=== PATIENT | female | born 1955 | race Caucasian/White ===

== ENCOUNTER → 2017-04-02 | Outpatient (CLI) | payer MEDICARE, MEDICAID ==
[~2017-04-02] MED LIST: ALBUTEROL0.09 MG/A2; ALBUTEROL0.09 MG/A2 IH; ANTIVERT12.5 MG PO; ATIVAN0.5 MG PO; BACTRIM DS 8001 TA1 PO; CELECOXIB200 M1 PO; CIPRO500 MG PO; CIPROFLOXACIN500 MG PO; CLARITIN10 MG PO; DIFLUCAN150 MG PO; ESTRACE0.5 MG PO; FLOVENT HFA10.6 GM IH; FLOVENT0.044 MG/A IH; IBUPROFEN200 M2 PO; IMITREX100 MG PO; K-TAB20 MEQ PO; LEVAQUIN750 MG PO; LOMOTIL 0.025 M1 TA1 PO; MEDROL2 MG PO; MEDROL4 MG PO; NORTRIPTYLINE10 MG PO; OMEGA 3 120 MG-1 CAP PO; PREDNICOT20 MG PO; PREDNISONE20 M1 PO; PREDNISONE5 MG PO; PROBIOTIC250 MG PO; REGLAN10 MG PO; SEPTRA DS 800 M1 TAB PO; VENTOLIN H0.09 MG/AC INH; ZOFRAN ODT4 MG SL; Zofran4 MG PO
== END | disposition home or self-care (01) ==
LOC: MAMMO 02:51
DX: Z12.31 Encounter for screening mammogram for malignant neoplasm of breast (principal)

== ENCOUNTER → 2018-06-08 | Outpatient (CLI) | payer MEDICARE, MEDICAID | END | disposition home or self-care (01) | LOC: MAMMO 01:54 | DX: Z12.31 Encounter for screening mammogram for malignant neoplasm of breast (principal) ==

== ENCOUNTER → 2018-10-30 | Emergency (ER) | payer OTHER ==
[~2018-10-30] VITALS: Ht 162.5 cm; Wt 52.6 kg
[~2018-10-30] MED LIST changes: +ZOFRAN4 MG PO
[2018-10-30 17:31] LABS: BASO # 0.1 10*3/uL (0.0-0.1); BASO % 0.6 % (0.0-1.0); EOS # 0.1 10*3/uL (0.0-0.4); HEMATOCRIT 45.9 % (37.0-47.0); HEMOGLOBIN 15.1 g/dl (12.0-16.0); LYMPH # 1.1 10*3/uL (1.3-4.4); LYMPH % 9.7 % (27.0-41.0); MEAN CORPUSCULAR HGB 29.3 pg (27.0-31.0); MEAN CORPUSCULAR HGB CONC 32.9 g/dl (33.0-37.0); MEAN PLATELET VOLUME 10.1 fl (9.6-12.3); MONO # 0.4 10*3/uL (0.1-1.0); MONO % 3.7 % (3.0-9.0); NEUT # 9.2 10*3/uL (2.3-7.9); NEUT % 84.6 % (47.0-73.0); PLATELET COUNT AUTOMATED 243 10*3/uL (130-400); RED BLOOD COUNT 5.16 10*6/uL (4.10-5.10); RED CELL DISTRI WIDTH 12.4 % (0-14.5); WHITE BLOOD COUNT 10.9 10*3/uL (4.8-10.8)
[2018-10-30 17:31] LABS: BILIRUBIN NEGATIVE (NEGATIVE); BLOOD TRACE-INTACT (NEGATIVE); CLARITY CLEAR (CLEAR); COLOR YELLOW (YELLOW); GLUCOSE NEGATIVE (NEGATIVE); KETONE TRACE (NEGATIVE); LEUKO ESTERASE NEGATIVE (NEGATIVE); NITRITE NEGATIVE (NEGATIVE); SPECIFIC GRAVITY 1.015 (1.005-1.030); UROBILINOGEN 0.2 E.U./dl (0.2-1.0)
[2018-10-30 17:41] LABS: BACTERIA 1+; EPITHELIAL CELLS 20-25
[2018-10-30 17:42] LABS: WBC 0-2 wbc/hpf (0-5)
[2018-10-30 17:52] LABS: ALBUMIN 3.5 gm/dl (3.1-4.5); ALKALINE PHOSPHATASE 92 U/L (45-117); BUN 17 mg/dl (7-24); CHLORIDE 105 mmol/L (98-107); CREATININE 0.76 mg/dL (0.55-1.02); LIPASE 123 U/L (73-393); POTASSIUM 4.4 mmol/L (3.5-5.1); SGOT/AST 13 IU/L (3-35); SGPT/ALT 15 U/L (12-78); SODIUM 140 mmol/L (136-145)
== END ==
LOC: ED 16:07
PROVIDERS: Physician Assistant
DX: K56.7 Ileus, unspecified (principal); Z88.0 Allergy status to penicillin; Z88.6 Allergy status to analgesic agent; Z88.8 Allergy status to other drugs, medicaments and biological substances; Z88.1 Allergy status to other antibiotic agents; Z91.011 Allergy to milk products; Z79.2 Long term (current) use of antibiotics; Z79.899 Other long term (current) drug therapy; Z90.710 Acquired absence of both cervix and uterus

== ENCOUNTER 2018-12-14 12:34 | Emergency (ER) | payer OTHER ==
[~2018-12-14] VITALS: Ht 162.5 cm; Wt 54.4 kg
--- NOTE | ~2018-12-14 | EKG ---
[place], [place] ELECTROCARDIOGRAM REPORT NAME: CAPRI GRAJEDA UNIT #: [id number] ROOM: DOCTOR: EPIPHANY DRAFT REPORT BIRTHDATE: [birth year] [facility] Test Date: 2018-12-14 Test Time: 13:28:36 Pat Name: CAPRI GRAJEDA Department: ER Room: 17 Gender: F Sprinkler Inspector: Kristy Gómez : 1955 Requested By: CARMITA SINGLETARY Order Number: [id number] Reading MD: Kyle Tran MD Measurements Intervals [place] Rate: 77 P: 60 RI: 123 QRS: 48 QRSD: 89 T: 100 QT: 376 QTc: 426 Interpretive Statements Sinus rhythm Borderline repolarization abnormality Electronically Signed On 12-15-2018 11:25:00 PST by Kyle Tran MD CM:EKGRPT:ELECTROCARDIOGRAM REPORT [id number] CARMITA NUNEZ DRAFT REPORT CARMITA SINGLETARY MD
[2018-12-14 13:32] LABS: BASO # 0.1 10*3/uL (0.0-0.1); BASO % 0.6 % (0.0-1.0); EOS # 0.1 10*3/uL (0.0-0.4); EOS % 1.1 % (1.0-4.0); HEMATOCRIT 46.4 % (37.0-47.0); HEMOGLOBIN 15.3 g/dl (12.0-16.0); LYMPH # 1.6 10*3/uL (1.3-4.4); LYMPH % 12.5 % (27.0-41.0); MEAN CELL VOLUME 89.9 fl (81.0-99.0); MEAN CORPUSCULAR HGB 29.7 pg (27.0-31.0); MEAN PLATELET VOLUME 10.2 fl (9.6-12.3); MONO # 0.6 10*3/uL (0.1-1.0); MONO % 4.6 % (3.0-9.0); NEUT # 10.1 10*3/uL (2.3-7.9); NEUT % 80.8 % (47.0-73.0); PLATELET COUNT AUTOMATED 268 10*3/uL (130-400); RED BLOOD COUNT 5.16 10*6/uL (4.10-5.10); RED CELL DISTRI WIDTH 12.5 % (0-14.5); WHITE BLOOD COUNT 12.4 10*3/uL (4.8-10.8)
[2018-12-14 13:33] LABS: BILIRUBIN NEGATIVE (NEGATIVE); BLOOD TRACE-INTACT (NEGATIVE); CLARITY CLEAR (CLEAR); COLOR YELLOW (YELLOW); GLUCOSE NEGATIVE (NEGATIVE); KETONE NEGATIVE (NEGATIVE); LEUKO ESTERASE NEGATIVE (NEGATIVE); NITRITE NEGATIVE (NEGATIVE); PH 5.5 (5.0-9.0); SPECIFIC GRAVITY <= 1.005 (1.005-1.030); UROBILINOGEN 0.2 E.U./dl (0.2-1.0)
[2018-12-14 13:41] LABS: ACT PARTIAL THROMBO TIME 22.7 SECONDS (20.8-31.5); INTERNATIONAL NORM RATIO 0.9 (2.0-3.5)
[2018-12-14 13:42] LABS: BACTERIA 1+
[2018-12-14 13:48] LABS: ALBUMIN 3.7 gm/dl (3.1-4.5); ALKALINE PHOSPHATASE 86 U/L (45-117); BUN 19 mg/dl (7-24); CHLORIDE 105 mmol/L (98-107); CREATININE 0.92 mg/dL (0.55-1.02); POTASSIUM 4.4 mmol/L (3.5-5.1); SGOT/AST 16 IU/L (3-35); SGPT/ALT 16 U/L (12-78); SODIUM 139 mmol/L (136-145); TOTAL PROTEIN 7.1 gm/dL (6.4-8.2)
[2018-12-14 13:51] LABS: TROPONIN I < 0.015 ng/ml (<0.045)
[2018-12-14] MEDS ORDERED: NORVASC5 MG PO (16:22)
[2018-12-27] MEDS ORDERED: NORVASC5 MG PO (08:12)
[2018-12-27] MEDS ORDERED: DEPO MEDRO40 MG/1 ML IM (08:13)
[2018-12-27] MEDS ORDERED: VIT D IJ (08:13)
== END 2018-12-14 16:26 | disposition home or self-care (01) ==
LOC: ED 12:34
PROVIDERS: Emergency Medicine
DX: R42 Dizziness and giddiness (principal); R51 Headache; I10 Essential (primary) hypertension; Z98.890 Other specified postprocedural states; Z90.710 Acquired absence of both cervix and uterus; J44.9 Chronic obstructive pulmonary disease, unspecified; Z79.899 Other long term (current) drug therapy; Z88.0 Allergy status to penicillin; Z88.6 Allergy status to analgesic agent; Z88.3 Allergy status to other anti-infective agents; Z88.1 Allergy status to other antibiotic agents; Z91.011 Allergy to milk products

== ENCOUNTER → 2018-12-27 | Outpatient (CLI) | payer OTHER ==
[~2018-12-27] MED LIST changes: +DEPO MEDRO40 MG/1 ML IM; +NORVASC5 MG PO; +VIT D IJ; +ZYRTEC10 MG PO
--- NOTE | ~2018-12-27 | ST ---
[place], [place] EXERCISE STRESS TEST REPORT NAME: CAPRI GRAJEDA [facility] #: [id number] UNIT #: [id number] ROOM: DOCTOR: JEB MCKOY MD BIRTHDATE: [birth year] DOS: 12/27/2018 PHARMACOLOGICAL STRESS TEST REASON FOR TESTING: Atypical chest pain. Baseline EKG showed normal sinus rhythm with ST changes suggestive of inferior wall ischemia. PROCEDURE: Informed consent was obtained after explaining the risks and benefits of the test. The patient received a rapid infusion of regadenoson 0.4 mg IV followed by saline flush. The patient experienced nausea and dizziness. There were no new EKG changes were noted. The patient tolerated the procedure well. There was an appropriate heart rate response to the infusion. Isotope was injected 40 seconds later. IMPRESSION: Well tolerated pharmacological stress test. Please see separate imaging report for further details of the stress test results. Jeb Mckoy MD CM:STRESS:EXERCISE STRESS TEST REPORT [id number] 1020 JEB MCKOY MD
--- NOTE | 2018-12-27 09:45 | NUR ---
INFORMED CONSENT OBTAINED FOR LEXISCAN NUCLEAR STRESS TEST WITH DR. MCKOY. RESTING EKG NSR WITH A RESTING HR OF 99 WITH BP OF 144/68. HAS ST DOWNSLOPING IN LEADS II,III AND AVF. LUNGS CLEAR WITH SPO2 OF 97% ON ROOM AIR. PT COMPLETED A 1:00 LEXISCAN PROTOCOL RECEIVING LEXISCAN 0.4 MG IV OVER 10 SECONDS. HAD NO CHEST PAIN. DID DEVELOP ST DEPRESSION IN LEADS II,III,AVF AND V5-V6. HAD C/O NAUSEA THAT SUBSIDED IN RECOVERY. HAD A PEAK HR OF 127 WITH BP OF 168/70. LAST RECOVERY HR OF 105 WITH BP OF 156/50. AWAITING SCANNING IN STABLE CONDITION.
== END | disposition home or self-care (01) ==
LOC: CARD 02:18
DX: R07.89 Other chest pain (principal); I10 Essential (primary) hypertension; E78.49 Other hyperlipidemia; R06.89 Other abnormalities of breathing

== ENCOUNTER → 2018-12-28 | Outpatient (CLI) | payer OTHER ==
[~2018-12-28] MED LIST changes: -ZYRTEC10 MG PO
== END | disposition home or self-care (01) ==
LOC: MRI 00:20
DX: G32.89 Other specified degenerative disorders of nervous system in diseases classified elsewhere (principal); J32.8 Other chronic sinusitis; R42 Dizziness and giddiness; R51 Headache

== ENCOUNTER 2019-06-28 12:39 | Emergency (ER) | payer OTHER ==
[~2019-06-28] VITALS: Ht 162.5 cm; Wt 54.4 kg
[2019-06-28] MEDS ORDERED: ZYRTEC10 MG PO (13:06)
== END 2019-06-28 13:50 | disposition home or self-care (01) ==
LOC: ED 12:39
DX: H01.004 Unspecified blepharitis left upper eyelid (principal); Z88.0 Allergy status to penicillin; Z88.8 Allergy status to other drugs, medicaments and biological substances; Z88.6 Allergy status to analgesic agent; Z88.1 Allergy status to other antibiotic agents; Z91.011 Allergy to milk products; Z79.899 Other long term (current) drug therapy; Z90.710 Acquired absence of both cervix and uterus; Z90.49 Acquired absence of other specified parts of digestive tract

== ENCOUNTER → 2019-10-30 | Outpatient (CLI) | payer OTHER ==
[~2019-10-30] MED LIST changes: +ZYRTEC10 MG PO
== END | disposition home or self-care (01) ==
LOC: MAMMO 14:00
DX: Z12.31 Encounter for screening mammogram for malignant neoplasm of breast (principal)

== ENCOUNTER 2019-11-16 10:23 | Emergency (ER) | payer OTHER ==
[~2019-11-16] VITALS: Ht 162.5 cm; Wt 52.6 kg
[2019-11-16] MEDS ORDERED: Tobrex Ophth S2.5 ML OPH (10:56)
[2019-11-17] MEDS ORDERED: SEPTDS PO (19:19)
== END 2019-11-16 10:59 | disposition home or self-care (01) ==
LOC: ED 10:23
DX: H00.011 Hordeolum externum right upper eyelid (principal); Z90.710 Acquired absence of both cervix and uterus; Z79.899 Other long term (current) drug therapy; Z88.6 Allergy status to analgesic agent; Z88.3 Allergy status to other anti-infective agents; Z88.1 Allergy status to other antibiotic agents; Z88.8 Allergy status to other drugs, medicaments and biological substances; Z88.0 Allergy status to penicillin

== ENCOUNTER 2019-11-17 18:36 | Emergency (ER) | payer OTHER ==
[~2019-11-17] VITALS: Ht 162.5 cm; Wt 52.6 kg
[~2019-11-17 18:36] MED LIST changes: +Tobrex Ophth S2.5 ML OPH
[2019-11-17] MEDS ORDERED: SEPTDS PO (19:19)
== END 2019-11-17 19:28 | disposition home or self-care (01) ==
LOC: ED 18:36
DX: H00.011 Hordeolum externum right upper eyelid (principal); H00.034 Abscess of left upper eyelid; Z88.0 Allergy status to penicillin; Z88.8 Allergy status to other drugs, medicaments and biological substances; Z88.6 Allergy status to analgesic agent; Z88.1 Allergy status to other antibiotic agents; Z91.011 Allergy to milk products; Z79.2 Long term (current) use of antibiotics; Z79.899 Other long term (current) drug therapy

== ENCOUNTER → 2020-09-10 | Outpatient (CLI) | payer OTHER ==
[~2020-09-10] MED LIST changes: +SEPTDS PO
[2020-09-10 10:35] LABS: CHOLESTEROL 243 mg/dL (<200); HDL CHOLESTEROL 81 mg/dl (40-60); LDL CHOLESTEROL 99 mg/dL (9-159); TRIGLYCERIDES 315 mg/dl (<150); VLDL CHOLESTEROL 63 mg/dL (6-40)
== END | disposition home or self-care (01) ==
LOC: LAB 08:20
PROVIDERS: ATTEND Internal Medicine
DX: E78.2 Mixed hyperlipidemia (principal)

== ENCOUNTER → 2020-10-30 | Outpatient (CLI) | payer OTHER | LOC: COVID19 14:37 | PROVIDERS: ATTEND Internal Medicine | DX: Z20.828 Contact with and (suspected) exposure to other viral communicable diseases (principal) ==

== ENCOUNTER 2021-01-16 13:03 | Emergency (ER) | payer OTHER ==
[~2021-01-16] VITALS: Ht 162.5 cm; Wt 59.9 kg
[2021-01-16] MEDS ORDERED: SEPTDS PO (15:35)
== END 2021-01-16 15:44 | disposition home or self-care (01) ==
LOC: ED 13:03
DX: K13.0 Diseases of lips (principal); J44.9 Chronic obstructive pulmonary disease, unspecified; G43.909 Migraine, unspecified, not intractable, without status migrainosus; F41.9 Anxiety disorder, unspecified; I10 Essential (primary) hypertension; E78.00 Pure hypercholesterolemia, unspecified; Z88.0 Allergy status to penicillin; Z88.8 Allergy status to other drugs, medicaments and biological substances; Z91.011 Allergy to milk products; Z88.5 Allergy status to narcotic agent; Z79.899 Other long term (current) drug therapy; Z98.890 Other specified postprocedural states

== ENCOUNTER → 2021-04-03 | Outpatient (CLI) | payer OTHER | END | disposition home or self-care (01) | LOC: RAD 03-19 13:30 → MAMMO 14:30 | PROVIDERS: ATTEND Internal Medicine | DX: Z12.31 Encounter for screening mammogram for malignant neoplasm of breast (principal); Z78.0 Asymptomatic menopausal state ==

== ENCOUNTER → 2021-04-16 | Outpatient (CLI) | payer OTHER ==
[2021-04-16 08:12] LABS: BUN 19 mg/dl (7-24); CHLORIDE 105 mmol/L (98-107); CHOLESTEROL 247 mg/dL (<200); CREATININE 0.82 mg/dL (0.55-1.02); LDL CHOLESTEROL 115 mg/dL (9-159); POTASSIUM 3.1 mmol/L (3.5-5.1); SODIUM 140 mmol/L (136-145); TRIGLYCERIDES 258 mg/dl (<150)
== END | disposition home or self-care (01) ==
LOC: LAB 07:06
PROVIDERS: ATTEND Internal Medicine
DX: I10 Essential (primary) hypertension (principal); E03.9 Hypothyroidism, unspecified; E78.2 Mixed hyperlipidemia; E55.9 Vitamin D deficiency, unspecified

== ENCOUNTER → 2021-06-10 | Outpatient (CLI) | payer OTHER ==
[2021-06-10 08:34] LABS: BUN 18 mg/dl (7-24); CHLORIDE 105 mmol/L (98-107); CHOLESTEROL 244 mg/dL (<200); CREATININE 0.86 mg/dL (0.55-1.02); POTASSIUM 3.4 mmol/L (3.5-5.1); SODIUM 137 mmol/L (136-145); TRIGLYCERIDES 304 mg/dl (<150)
[2021-06-10 08:35] LABS: LDL CHOLESTEROL 104 mg/dL (9-159)
== END | disposition home or self-care (01) ==
LOC: LAB 06:58
PROVIDERS: ATTEND Internal Medicine
DX: E78.5 Hyperlipidemia, unspecified (principal); E87.6 Hypokalemia

== ENCOUNTER → 2022-04-14 | Outpatient (CLI) | payer OTHER | END | disposition home or self-care (01) | LOC: MAMMO 01:14 | PROVIDERS: ATTEND Internal Medicine | DX: Z12.31 Encounter for screening mammogram for malignant neoplasm of breast (principal) ==

== ENCOUNTER 2022-04-26 13:42 | Emergency (ER) | payer OTHER ==
[~2022-04-26] VITALS: Ht 165.1 cm; Wt 60.3 kg
[2022-04-26] MEDS ORDERED: PROVENTIL HFA6.7 GM INH (18:08)
[2022-04-26] MEDS ORDERED: CIPRO500 MG PO (18:08)
[2022-04-26] MEDS ORDERED: PREDNISONE50 MG PO (18:08)
== END 2022-04-26 18:12 | disposition home or self-care (01) ==
LOC: ED 13:42
DX: J45.901 Unspecified asthma with (acute) exacerbation (principal)

== ENCOUNTER → 2022-11-11 | Outpatient (CLI) | payer OTHER ==
[~2022-11-11] MED LIST changes: +PREDNISONE50 MG PO; +PROVENTIL HFA6.7 GM INH
[2022-11-11 07:55] LABS: BUN 12 mg/dl (9-23); CHLORIDE 101 mmol/L (98-107); CHOLESTEROL 228 mg/dL (<200); CREATININE 0.78 mg/dL (0.55-1.02); LDL CHOLESTEROL 104 mg/dL (9-159); POTASSIUM 3.4 mmol/L (3.4-5.1); SODIUM 138 mmol/L (136-145); THYROID STIM HORMONE (HS) 2.317 uIU/ml (0.550-4.780); TRIGLYCERIDES 220 mg/dl (<150)
== END | disposition home or self-care (01) ==
LOC: LAB 07:09
PROVIDERS: ATTEND Internal Medicine
DX: Z79.899 Other long term (current) drug therapy (principal)

== ENCOUNTER → 2023-05-04 | Outpatient (CLI) | payer OTHER | END | disposition home or self-care (01) | LOC: MAMMO 01:34 | PROVIDERS: ATTEND Registered Nurse | DX: Z12.31 Encounter for screening mammogram for malignant neoplasm of breast (principal) ==

== ENCOUNTER → 2024-05-16 | Outpatient (CLI) | payer OTHER | END | disposition home or self-care (01) | LOC: MAMMO 01:13 | PROVIDERS: ATTEND Internal Medicine | DX: Z12.31 Encounter for screening mammogram for malignant neoplasm of breast (principal); R92.333 Mammographic heterogeneous density, bilateral breasts ==

== ENCOUNTER 2025-01-02 15:36 | Emergency (ER) | payer OTHER ==
[~2025-01-02] VITALS: Ht 165.1 cm; Wt 61.4 kg
[2025-01-02] MEDS ORDERED: methylPREDNISolone sod succ 125 MG VIAL IV ONE (16:05)
[2025-01-02] MEDS ORDERED: Albuterol Sulfate 2.5 MG/3 ML VIAL NEB ONE (16:05)
[2025-01-02] MEDS ORDERED: MAGNESIUM SULFATE 50 ML IV ONE (16:05)
[2025-01-02 16:36] LABS: BASO # 0.1 10*3/uL (0.0-0.1); BASO % 0.4 % (0.0-1.0); EOS # 0.1 10*3/uL (0.0-0.4); EOS % 0.5 % (1.0-4.0); HEMATOCRIT 41.4 % (37.0-47.0); MEAN CELL VOLUME 88.7 fl (81.0-99.0); MEAN CORPUSCULAR HGB 28.5 pg (27.0-31.0); MEAN CORPUSCULAR HGB CONC 32.1 g/dl (33.0-37.0); MEAN PLATELET VOLUME 9.8 fl (9.6-12.3); MONO # 0.8 10*3/uL (0.1-1.0); MONO % 5.6 % (3.0-9.0); NEUT # 12.2 10*3/uL (2.3-7.9); NEUT % 87.4 % (47.0-73.0); PLATELET COUNT AUTOMATED 280 10*3/uL (130-400); RED BLOOD COUNT 4.67 10*6/uL (4.10-5.10); RED CELL DISTRI WIDTH 13.5 % (0-14.5); WHITE BLOOD COUNT 13.9 10*3/uL (4.8-10.8)
[2025-01-02 16:50] LABS: BUN 15 mg/dl (9-23); CHLORIDE 103 mmol/L (98-107); POTASSIUM 3.7 mmol/L (3.4-5.1)
[2025-01-02] MEDS ORDERED: LEVOFLOXACIN750 M2 PO (17:02)
[2025-01-03] MEDS ORDERED: ESTRADIOL1 MG PO (21:08)
== END 2025-01-02 17:31 | disposition home or self-care (01) ==
LOC: ED 15:36
PROVIDERS: Emergency Medicine
DX: J45.901 Unspecified asthma with (acute) exacerbation (principal); Z20.822 Contact with and (suspected) exposure to COVID-19; Z88.0 Allergy status to penicillin; Z88.8 Allergy status to other drugs, medicaments and biological substances; Z88.6 Allergy status to analgesic agent; Z91.011 Allergy to milk products; Z88.1 Allergy status to other antibiotic agents; Z79.899 Other long term (current) drug therapy; Z79.2 Long term (current) use of antibiotics; Z90.711 Acquired absence of uterus with remaining cervical stump

== ENCOUNTER 2025-01-03 16:49 | Inpatient (IN) | payer OTHER ==
[~2025-01-03] VITALS: Ht 165.1 cm; Wt 61.7 kg
[~2025-01-03 16:49] MED LIST changes: +LEVOFLOXACIN750 M2 PO
[2025-01-03 17:44] VITALS: BP 146/70
[2025-01-03] MEDS ORDERED: Albuterol Sulfate 2.5 MG/3 ML VIAL NEB ONE (17:55)
[2025-01-03] MEDS ORDERED: methylPREDNISolone sod succ 125 MG VIAL IV ONE (17:55)
[2025-01-03] MEDS ORDERED: MAGNESIUM SULFATE 50 ML IV ONE (17:55)
[2025-01-03 18:03] LABS: HEMATOCRIT 42.2 % (37.0-47.0); MEAN CELL VOLUME 88.8 fl (81.0-99.0); MEAN CORPUSCULAR HGB 28.4 pg (27.0-31.0); MEAN PLATELET VOLUME 9.8 fl (9.6-12.3); PLATELET COUNT AUTOMATED 302 10*3/uL (130-400); RED BLOOD COUNT 4.75 10*6/uL (4.10-5.10); RED CELL DISTRI WIDTH 13.7 % (0-14.5); WHITE BLOOD COUNT 22.7 10*3/uL (4.8-10.8)
[2025-01-03 18:17] LABS: BUN 22 mg/dl (9-23); CHLORIDE 103 mmol/L (98-107); POTASSIUM 3.5 mmol/L (3.4-5.1)
[2025-01-03 18:20] LABS: MANUAL DIFF REFLEX YES
[2025-01-03] MEDS ORDERED: BISACODYL 10 MG SUPP R PRN (18:30)
[2025-01-03] MEDS ORDERED: Ondansetron Hydrochloride 4 MG/2 ML VIAL IV PRN (18:30)
[2025-01-03] MEDS ORDERED: Magnesium Hydroxide 30 ML UDC PO PRN (18:30)
[2025-01-03] MEDS ORDERED: BISACODYL 5 MG TAB PO PRN (18:30)
[2025-01-03] MEDS ORDERED: ACETAMINOPHEN 325 MG TAB PO PRN (18:30)
[2025-01-03] MEDS ORDERED: ACETAMINOPHEN 650 MG SUPP R PRN (18:30)
[2025-01-03 18:48] LABS: PLATELET SUFFICIENCY NORMAL (NORMAL); TOTAL CELLS COUNTED 100 #CELLS
[2025-01-03] MEDS ORDERED: SODIUM CHLORIDE 0.9% 1,000 ML IV SCH (19:35)
[2025-01-03] MEDS ORDERED: ESTRADIOL1 MG PO (21:08)
[2025-01-03] MEDS ORDERED: Albuterol Sulf/Ipratropium 3 ML VIAL NEB SCH (21:25)
[2025-01-03] MEDS ORDERED: methylPREDNISolone sod succ 125 MG VIAL IV SCH (22:00)
[2025-01-03 22:58] VITALS: BP 141/52
[2025-01-04 05:34] LABS: ACT PARTIAL THROMBO TIME 24.8 SECONDS (20.0-32.1)
[2025-01-04 05:48] LABS: BUN 21 mg/dl (9-23)
[2025-01-04 05:49] LABS: ALKALINE PHOSPHATASE 93 U/L (46-116); CHLORIDE 106 mmol/L (98-107); CHOLESTEROL 210 mg/dL (<200); FREE T4 0.94 ng/dl (0.89-1.76); LDL CHOLESTEROL 96 mg/dL (9-159); POTASSIUM 3.5 mmol/L (3.4-5.1); SGPT/ALT 12 U/L (5-49); TOTAL PROTEIN 5.7 gm/dL (6.0-8.0); TRIGLYCERIDES 146 mg/dl (<150)
[2025-01-04 06:03] LABS: HEMATOCRIT 37.3 % (37.0-47.0); MEAN CELL VOLUME 88.8 fl (81.0-99.0); MEAN CORPUSCULAR HGB 28.6 pg (27.0-31.0); MEAN CORPUSCULAR HGB CONC 32.2 g/dl (33.0-37.0); MEAN PLATELET VOLUME 10.3 fl (9.6-12.3); PLATELET COUNT AUTOMATED 282 10*3/uL (130-400); WHITE BLOOD COUNT 17.9 10*3/uL (4.8-10.8)
[2025-01-04] MEDS ORDERED: SODIUM CHLORIDE 0.9% 1,000 ML IV ONE (06:10)
[2025-01-04 06:14] LABS: MANUAL DIFF REFLEX YES
[2025-01-04 06:56] VITALS: BP 121/62
[2025-01-04 07:26] LABS: PLATELET SUFFICIENCY NORMAL (NORMAL); SCHISTOCYTES FEW; TOTAL CELLS COUNTED 100 #CELLS
[2025-01-04 08:03] LABS: VITAMIN D, 25-HYDROXY 42.8 ng/mL (30-100)
[2025-01-04] MEDS ORDERED: Enoxaparin Sodium 40 MG/0.4 ML SYR SC SCH (10:00)
[2025-01-04] MEDS ORDERED: SODIUM CHLORIDE 0.9% 1,000 ML IV SCH (10:20)
[2025-01-04 10:45] VITALS: BP 119/53
[2025-01-04] MEDS ORDERED: AZITHROMYCIN 250 ML IV SCH (11:00)
[2025-01-04] MEDS ORDERED: cefTRIAXone Sodium 10 ML IV SCH (12:00)
[2025-01-04 12:03] VITALS: BP 137/72
[2025-01-04 18:41] VITALS: BP 143/66
[2025-01-04 23:01] VITALS: BP 133/63
[2025-01-05 05:52] VITALS: BP 108/54
[2025-01-05 06:28] LABS: HEMATOCRIT 36.1 % (37.0-47.0); MEAN CELL VOLUME 90.9 fl (81.0-99.0); MEAN CORPUSCULAR HGB 28.2 pg (27.0-31.0); MEAN PLATELET VOLUME 9.8 fl (9.6-12.3); PLATELET COUNT AUTOMATED 246 10*3/uL (130-400); RED BLOOD COUNT 3.97 10*6/uL (4.10-5.10); RED CELL DISTRI WIDTH 14.2 % (0-14.5); WHITE BLOOD COUNT 18.5 10*3/uL (4.8-10.8)
[2025-01-05 06:37] LABS: MANUAL DIFF REFLEX YES
[2025-01-05 06:51] LABS: BUN 19 mg/dl (9-23); CHLORIDE 109 mmol/L (98-107); POTASSIUM 3.8 mmol/L (3.4-5.1)
[2025-01-05 08:16] LABS: PLATELET SUFFICIENCY NORMAL (NORMAL); TOTAL CELLS COUNTED 100 #CELLS
[2025-01-05 12:00] VITALS: BP 110/66
[2025-01-05] MEDS ORDERED: cefTRIAXone Sodium 1 GM,IV 1 EA in SYRINGE INFUSION 10 ML IV SCH (13:30)
[2025-01-05] MEDS ORDERED: diphenhydrAMINE hydrochloride 25 MG CAP PO ONE (15:00)
[2025-01-05 15:15] VITALS: BP 172/68
[2025-01-05 20:00] VITALS: BP 141/68
[2025-01-06] VITALS: BP 142/67
[2025-01-06 05:57] LABS: BUN 23 mg/dl (9-23); CHLORIDE 108 mmol/L (98-107); POTASSIUM 3.9 mmol/L (3.4-5.1)
[2025-01-06] MEDS ORDERED: SODIUM CHLORIDE 0.9% 1,000 ML IV ONE ×2 (06:05→10:55)
[2025-01-06 06:10] LABS: HEMATOCRIT 35.4 % (37.0-47.0); MEAN CELL VOLUME 89.6 fl (81.0-99.0); MEAN CORPUSCULAR HGB 27.8 pg (27.0-31.0); MEAN CORPUSCULAR HGB CONC 31.1 g/dl (33.0-37.0); MEAN PLATELET VOLUME 10.3 fl (9.6-12.3); PLATELET COUNT AUTOMATED 238 10*3/uL (130-400); RED BLOOD COUNT 3.95 10*6/uL (4.10-5.10); RED CELL DISTRI WIDTH 14.2 % (0-14.5); WHITE BLOOD COUNT 15.7 10*3/uL (4.8-10.8)
[2025-01-06 06:15] LABS: MANUAL DIFF REFLEX YES
[2025-01-06 07:07] LABS: TOTAL CELLS COUNTED 100 #CELLS
[2025-01-06 07:08] LABS: PLATELET SUFFICIENCY NORMAL (NORMAL)
[2025-01-06 07:09] LABS: MORPHOLOGY COMMENT N; TOXIC GRANULATION SLIGHT
[2025-01-06 08:00] VITALS: BP 150/63
[2025-01-06 12:00] VITALS: BP 171/79
[2025-01-06 16:00] VITALS: BP 136/71
[2025-01-06] MEDS ORDERED: IPRATROPIUM BROMIDE 0.5 MG/2.5 ML AMP NEB SCH (16:05)
[2025-01-06] MEDS ORDERED: ALBUTEROL 8 GM INHALER INH SCH (18:00)
[2025-01-06 20:00] VITALS: BP 132/62
[2025-01-07] VITALS: BP 153/67
[2025-01-07 06:26] LABS: HEMATOCRIT 34.8 % (37.0-47.0); MEAN CELL VOLUME 88.8 fl (81.0-99.0); MEAN CORPUSCULAR HGB 28.6 pg (27.0-31.0); MEAN CORPUSCULAR HGB CONC 32.2 g/dl (33.0-37.0); MEAN PLATELET VOLUME 10.1 fl (9.6-12.3); PLATELET COUNT AUTOMATED 230 10*3/uL (130-400); RED BLOOD COUNT 3.92 10*6/uL (4.10-5.10); WHITE BLOOD COUNT 15.6 10*3/uL (4.8-10.8)
[2025-01-07 06:29] LABS: MANUAL DIFF REFLEX YES
[2025-01-07 06:57] LABS: BUN 17 mg/dl (9-23); CHLORIDE 104 mmol/L (98-107); POTASSIUM 3.5 mmol/L (3.4-5.1)
[2025-01-07 07:42] LABS: PLATELET SUFFICIENCY NORMAL (NORMAL); TOTAL CELLS COUNTED 100 #CELLS
[2025-01-07 08:00] VITALS: BP 155/74
[2025-01-07 12:00] VITALS: BP 158/78
[2025-01-07 16:00] VITALS: BP 151/63
[2025-01-07 21:00] VITALS: BP 130/60
[2025-01-07] MEDS ORDERED: ESTRADIOL 1 MG TAB PO SCH (22:00)
[2025-01-08] VITALS: BP 125/50
[2025-01-08 07:02] LABS: HEMATOCRIT 37.1 % (37.0-47.0); MEAN CELL VOLUME 86.1 fl (81.0-99.0); MEAN CORPUSCULAR HGB 27.8 pg (27.0-31.0); MEAN CORPUSCULAR HGB CONC 32.3 g/dl (33.0-37.0); MEAN PLATELET VOLUME 10.3 fl (9.6-12.3); NUCLEATED RED BLOOD CELL 0.1 % (0.0-0.0); PLATELET COUNT AUTOMATED 242 10*3/uL (130-400); RED BLOOD COUNT 4.31 10*6/uL (4.10-5.10); RED CELL DISTRI WIDTH 13.9 % (0-14.5); WHITE BLOOD COUNT 15.1 10*3/uL (4.8-10.8)
[2025-01-08 07:15] LABS: MANUAL DIFF REFLEX YES
[2025-01-08 07:29] LABS: BUN 17 mg/dl (9-23); CHLORIDE 100 mmol/L (98-107); POTASSIUM 3.9 mmol/L (3.4-5.1)
[2025-01-08 07:51] LABS: ATYPICAL LYMPHS 1 % (0-0); BURR CELLS FEW; PLATELET SUFFICIENCY NORMAL (NORMAL); POLYCHROMASIA SLIGHT; TOTAL CELLS COUNTED 100 #CELLS
[2025-01-08 08:00] VITALS: BP 157/83
[2025-01-08] MEDS ORDERED: Lactated Ringer's Solution 0 ML IV ONE (09:12)
[2025-01-08] MEDS ORDERED: amLODIPine besylate 10 MG TAB PO SCH (10:00)
[2025-01-08 12:00] VITALS: BP 140/52
[2025-01-08] MEDS ORDERED: PREDNISONE10 MG PO (13:16)
[2025-01-08] MEDS ORDERED: ZITHROMAX250 MG PO (13:16)
== END 2025-01-08 14:27 | disposition home or self-care (01) | DRG 871 ==
LOC: ED 16:49 → EDHOLD 18:14 → 4E 01-05 14:36
PROVIDERS: Emergency Medicine; Student in an Organized Health Care Education/Training Program; ADMIT Internal Medicine; ATTEND Internal Medicine
DX: A41.9 Sepsis, unspecified organism (principal); J96.01 Acute respiratory failure with hypoxia; J45.41 Moderate persistent asthma with (acute) exacerbation; J20.5 Acute bronchitis due to respiratory syncytial virus; J98.4 Other disorders of lung; Z51.5 Encounter for palliative care; Z20.822 Contact with and (suspected) exposure to COVID-19; Z66 Do not resuscitate; I10 Essential (primary) hypertension; G43.909 Migraine, unspecified, not intractable, without status migrainosus; M35.3 Polymyalgia rheumatica; K21.9 Gastro-esophageal reflux disease without esophagitis; R65.20 Severe sepsis without septic shock; Z79.51 Long term (current) use of inhaled steroids; Z90.49 Acquired absence of other specified parts of digestive tract; Z90.710 Acquired absence of both cervix and uterus; Z82.49 Family history of ischemic heart disease and other diseases of the circulatory system; Z88.0 Allergy status to penicillin; Z88.6 Allergy status to analgesic agent; Z91.011 Allergy to milk products; Z88.1 Allergy status to other antibiotic agents; Z79.899 Other long term (current) drug therapy

== ENCOUNTER → 2025-05-22 | Outpatient (CLI) | payer OTHER ==
[~2025-05-22] MED LIST changes: +ESTRADIOL1 MG PO; +PREDNISONE10 MG PO; +ZITHROMAX250 MG PO
== END | disposition home or self-care (01) ==
LOC: MAMMO 02:49
PROVIDERS: ATTEND Internal Medicine
DX: Z12.31 Encounter for screening mammogram for malignant neoplasm of breast (principal); R92.323 Mammographic fibroglandular density, bilateral breasts